=== PATIENT | male | born 1995 | race Caucasian/White ===

== ENCOUNTER → 2024-01-10 | Outpatient (CLI) | payer BC, SELFPAY ==
--- NOTE | 2024-01-10 17:10 | DI.RAD.S_ITS ---
PROCEDURE: XR T AND L SPINE 4 TO 5 VIEWS INDICATIONS: SCOLIOSIS STUDY TECHNIQUE: 6 views acquired of the thoracolumbar spine. COMPARISON: None. FINDINGS: Bones: No acute fractures or dislocations. Visualized inferior ribs appear intact. No suspicious bony lesions. Mild dextrocurvature of the thoracolumbar spine with Mitchell angle of approximately 10.6 degrees measured at superior endplate of T8 and inferior endplate of L2.. Soft tissues: No suspicious soft tissue calcifications. IMPRESSION: Mild dextrocurvature of the thoracolumbar spine. Dictated by: Tyler Garcia M.D. on 01/11/2024 at 9:00 Approved by: Tyler Garcia M.D. on 01/11/2024 at 9:02
--- NOTE | 2024-01-10 17:27 | DI.RAD.S_ITS ---
PROCEDURE: XR BONE LENGTH SCANOGRAM INDICATIONS: S TECHNIQUE: A single frontal standing view of both lower extremities acquired, with measuring ruler situated between the legs. COMPARISON: None. FINDINGS: Right: Total leg length is 89.1 cm. Osseous prominence along the femoral head/neck junction. Left: Total leg length is 89.8 cm. Osseous prominence along the femoral head/neck junction. IMPRESSION: 1. Leg length as above 2. 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 If indicated, MRI could be performed for further assessment. Dictated by: Ham CASTILLO Interpreted: Alex Cortez MD on 01/11/2024 at 16:55 Transcribed by: QUIANA on 01/11/2024 at 16:56 Approved by: Alex Cortez M.D. on 02/18/2024 at 12:21
== END ==
PROVIDERS: Referring Provider Chiropractor; Visit Provider Chiropractor
DX: M41.20 Other idiopathic scoliosis, site unspecified (principal); M89.9 Disorder of bone, unspecified
CPT/HCPCS: 72083; 77073